=== PATIENT | female | born 1990 | race Caucasian/White ===

== ENCOUNTER 2016-06-10 07:03 | Inpatient (IN) ==
[2016-06-10] MEDS: LACTATED RINGERS 1,000 ML IV SCH ×2 (07:28→08:32)
[2016-06-10] MEDS ORDERED: ceFAZolin 2,000 MG in PREMIX 1 EACH IV ONE (07:29)
[2016-06-10] MEDS ORDERED: FAMOTIDINE 20 MG/2 ML VIAL IV ONE (07:29)
[2016-06-10] MEDS ORDERED: CITRIC ACID/SODIUM CITRATE 30 ML UDCUP PO ONE (07:29)
[2016-06-10 07:55] LABS: Basophils % 0.3 % (0.0-0.8); Eosinophils # 0.1 10*3/uL (0.0-0.87); Eosinophils % 0.5 % (0.00-10.9); Hemoglobin 12.1 GM/DL (12.0-16.0); Immature Granulocytes % 0.6 %; Immature Granulocytes Absolute 0.07 #; Lymphocytes # 2.1 10*3/uL (1.4-4.0); Lymphocytes % 19.1 % (21.3-54.2); Mean Corpuscular HGB Conc 33.6 GM/DL (32-36); Mean Corpuscular Hemoglobin 27 PG (27-34); Mean Corpuscular Volume 78.9 FL (87-102); Mean Platelet Volume 9.9 FL (9.6-12.0); Monocytes # 0.5 10*3/uL (0.11-0.8); Monocytes % 4.5 % (1.7-12.7); Neutrophils # 8.2 10*3/uL (1.4-7.4); Platelet Count 208 T/CUMM (130-400); Red Blood Count 4.56 MC/CUMM (3.8-5.5); Red Cell Distribution Width 14.3 % (9.3-17.3)
[2016-06-10] MEDS ORDERED: OXYTOCIN/LR 20 UNIT/1,000 ML BAG IV ONE ×2 (08:07→11:22)
[2016-06-10 08:40] LABS: Albumin 2.9 G/DL (3.4-5.0); Bilirubin,Total 0.4 MG/DL (0.2-1.0); Calcium 10.3 MG/DL (8.5-10.1); Osmolality,Calculated 279.1 MOS/KG (273-304); Potassium 3.6 MMOL/L (3.5-5.1); Total Protein 6.5 G/DL (6.4-8.3)
[2016-06-10] MEDS ORDERED: ONDANSETRON 4 MG/2 ML VIAL IV PRN (11:22)
[2016-06-10] MEDS ORDERED: ACETAMINOPHEN 325 MG TABLET PO PRN (11:22)
[2016-06-10] MEDS ORDERED: RHO(D) IMMUNE GLOBULIN 300 MCG SYRINGE IM ONE (11:22)
[2016-06-10] MEDS ORDERED: PROMETHAZINE 25 MG/1 ML VIAL IM PRN (11:24)
[2016-06-10] MEDS ORDERED: MEPERIDINE 25 MG/1 ML VIAL IV PRN (11:24)
[2016-06-10] MEDS ORDERED: LACTATED RINGERS 1,000 ML IV SCH (11:30)
[2016-06-10] MEDS ORDERED: ePHEDrine 50 MG/ML AMP ONE (11:34)
[2016-06-10] MEDS ORDERED: MORPHINE 10 MG/10 ML VIAL ONE (11:35)
[2016-06-10] MEDS ORDERED: MIDAZOLAM 2 MG/2 ML VIAL ONE (11:36)
[2016-06-10] MEDS ORDERED: HYDROmorphone 2 MG/1 ML VIAL IV ONE (11:52)
[2016-06-10] MEDS ORDERED: NALOXONE 0.4 MG/ML VIAL IV PRN (11:52)
[2016-06-10] MEDS ORDERED: HYDROmorphone PCA 30 MG/30 ML SYRINGE IV SCH (12:00)
[2016-06-10 12:41] LABS: Apearance,Urine CLEAR (Clear); Bacteria,Urine Occasional /HPF (Few); Bilirubin,Urine Negative (Negative); Blood, Urine Negative (Negative); Glucose,Urine (UA) Negative (Negative); Ketones,Urine Negative (Negative); Mucus,Urine Occasional /LPF (Occasional); Nitrite,Urine Negative (Negative); Protein,Urine Negative; RBC,Urine 1 /HPF (0-4); Squamous Epithelial Cell,Urine Occasional /HPF (0-10); Urine Color Straw (Yellow); Urine Specific Gravity 1.004 (1.001-1.035); Urine Urobilinogen < 2.0 EU/DL (0.2-1.0); WBC,Urine <1 /HPF (0-6)
[2016-06-10] MEDS: DOCUSATE SODIUM 100 MG CAPSULE PO SCH (21:04)
[2016-06-10 22:00] LABS: Basophils % 0.3 % (0.0-0.8); Eosinophils % 0.1 % (0.00-10.9); Hematocrit 29.7 VOL% (35.7-47.0); Hemoglobin 9.8 GM/DL (12.0-16.0); Immature Granulocytes % 0.6 %; Immature Granulocytes Absolute 0.07 #; Lymphocytes # 1.6 10*3/uL (1.4-4.0); Lymphocytes % 12.8 % (21.3-54.2); Mean Corpuscular Hemoglobin 27 PG (27-34); Mean Corpuscular Volume 80.7 FL (87-102); Mean Platelet Volume 9.8 FL (9.6-12.0); Monocytes # 0.5 10*3/uL (0.11-0.8); Neutrophils # 10.4 10*3/uL (1.4-7.4); Neutrophils % 82.2 % (38.7-73.9); Platelet Count 164 T/CUMM (130-400); Red Blood Count 3.68 MC/CUMM (3.8-5.5); Red Cell Distribution Width 14.2 % (9.3-17.3); White Blood Count 12.7 T/CUMM (4-12)
[2016-06-10] MEDS ORDERED: diphenhydrAMINE 50 MG/1 ML VIAL IV PRN (23:40)
[2016-06-11 04:58] LABS: Basophils # 0.1 10*3/uL (0.0-0.2); Basophils % 0.4 % (0.0-0.8); Eosinophils % 0.2 % (0.00-10.9); Hematocrit 29.5 VOL% (35.7-47.0); Hemoglobin 9.6 GM/DL (12.0-16.0); Immature Granulocytes % 0.6 %; Immature Granulocytes Absolute 0.08 #; Lymphocytes # 2.3 10*3/uL (1.4-4.0); Lymphocytes % 18.3 % (21.3-54.2); Mean Corpuscular HGB Conc 32.5 GM/DL (32-36); Mean Corpuscular Hemoglobin 27 PG (27-34); Mean Corpuscular Volume 81.7 FL (87-102); Mean Platelet Volume 9.5 FL (9.6-12.0); Monocytes # 0.6 10*3/uL (0.11-0.8); Monocytes % 4.9 % (1.7-12.7); Neutrophils # 9.6 10*3/uL (1.4-7.4); Neutrophils % 75.6 % (38.7-73.9); Platelet Count 156 T/CUMM (130-400); Red Blood Count 3.61 MC/CUMM (3.8-5.5); Red Cell Distribution Width 14.3 % (9.3-17.3); White Blood Count 12.6 T/CUMM (4-12)
[2016-06-11] MEDS: IBUPROFEN 800 MG TABLET PO PRN ×2 (06:00→17:56)
[2016-06-11] MEDS: MAGNESIUM HYDROXIDE SUSP 30 ML UDCUP PO PRN (10:03)
[2016-06-11] MEDS: SIMETHICONE CHEW 80 MG TABLET PO PRN (10:03)
[2016-06-11] MEDS: oxyCODONE/ACETAMINOPHEN 5-325 MG TABLET PO PRN ×3 (10:03→18:56)
[2016-06-11] MEDS: DOCUSATE SODIUM 100 MG CAPSULE PO SCH ×2 (10:03→20:55)
[2016-06-11] MEDS: MULTIVITAMIN (PRENATAL) TABLET PO SCH (10:03)
--- NOTE | 2016-06-11 11:48 | Pathology Report from [facility] ---
ACCESSION # : [id number] PATIENT NAME : Mercy Worthington ORDERING DR : WYATT DOS SANTOS CLINICAL HX: G1 term @ 39.2 wks gestation, elective due to severe hemorrhoids POST-OP DX: Same SPECIMEN INFO: Placenta GROSS DESCRIPTION: Received fresh labeled "[facility]" is a 522 gm placenta measuring 21.0 x 17.0 x 2.2 cm. The membranes are pink morales and translucent. The umbilical cord measures 29.0 cm, contains three vessels and is centrally inserted. The surface is blue herr with a few areas of subchorionic fibrin noted. The maternal surface displays hemorrhagic intact cotyledons with no gross abnormalities appreciated upon sectioning. Sections submitted A- membranes and cord, B- and maternal surfaces. DIAGNOSIS FOR [facility]: Trivascular umbilical cord. Unremarkable membranes. Third trimester placenta with increase in syncytial clumping and dystrophic calcification. SERVICE DATE: 06/10/2016 REPORT DATE: 06/11/2016 PATHOLOGIST: Yumiko Price III, M.D. MTDD
[2016-06-12] MEDS: SIMETHICONE CHEW 80 MG TABLET PO PRN (00:10)
[2016-06-12] MEDS: MAGNESIUM HYDROXIDE SUSP 30 ML UDCUP PO PRN (00:10)
[2016-06-12] MEDS: oxyCODONE/ACETAMINOPHEN 5-325 MG TABLET PO PRN ×3 (00:10→10:07)
[2016-06-12 07:28] VITALS: BP 126/75
--- NOTE | 2016-06-12 08:16 | History and Physical Update ---
History and Physical Update - History and Physical H&P was reviewed, the patient examined and there: are no changes in the patients condition since last H&P was completed. - Dictation Physical: refer to scanned H&P - Physical Exam Mental Status: alert and oriented Heart: regular rate and rhythm Lung: clear to auscultation Abdomen: within normal limits Vitals: within normal limits (06/10/16: Admitted for primary C/S at 39 wks with severe hemorrhoidal dz with hx of surgery during for hemorrhoids. No complications. )
--- NOTE | 2016-06-12 08:18 | OB/GYN Progress Note ---
Assessment and Plan (1) delivery due to maternal disorder, delivered, curr hospitaliz Status: Acute Assessment and plan: Routine post care Current Visit: Yes BOTTLE [employer]ANER - PN: Subj Interval history: 06/11/16: POD#1 Pt doing very well. Pain adequately controlled. Voiding without difficulty. Exam B[employer]LE [employer]ER - Constitutional Vitals: Vital Signs Temp Pulse Resp BP Pulse Ox 06/12/16 07:27 97.7 F 98 H 18 126/75 96 06/12/16 04:00 98.4 F 96 H 16 131/72 95 06/12/16 00:10 97.9 F 86 18 135/93 98 06/11/16 20:00 98.5 F 80 20 143/71 98 06/11/16 16:00 97.9 F 105 H 20 143/83 98 06/11/16 11:34 98 F 100 H 20 141/85 98 General appearance: normal weight, no acute distress - Head Head exam: Present: normal inspection, normocephalic - Eye Eye exam: Present: EOMI - Respiratory Respiratory exam: Present: clear to auscultation bilaterally - Cardiovascular Cardiovascular exam: Present: regular rate and rhythm - GI/Abdominal GI/Abdominal exam: Present: soft (fundus firm, nontender. Incision intact. No E /I/D) - Extremities Exam Extremities exam: Present: normal inspection - Neurological Exam Neurological exam: Present: alert, oriented X3 - Psychiatric Psychiatric exam: Present: normal affect, normal mood - Skin Skin exam: Present: normal color, warm Results - Labs CBC & BMP: 06/11/16 04:44 06/10/16 07:45 Lab Results: I have reviewed the past 24 hour labs
--- NOTE | 2016-06-12 08:20 | Discharge Summary ---
Hospital Course - Hospital Course Hospital Course: Pt underwent Primary LTCS for severe hemorrhoidal disease S/P hemorrhoid surgery during this . She did well postoperatively without complications. Diagnosis - Discharge Diagnosis (1) delivery due to maternal disorder, delivered, curr hospitaliz Status: Acute Discharge Plan - Discharge Data Disposition: Disch To Home/Self Care Condition at Discharge: Stable Discharge Diet: advance to your usual diet Activity: other (pelvic rest x 6 wks) Hygiene: may shower Weight Bearing at Discharge: full weight bearing Driving: not until seen by doctor Contact your physician if you experience:: fever over 101, Difficulty voiding, Redness or swelling, Nausea/Vomiting, Shortness of breath, Bleeding, pain uncontrolled by pain medications - Discharge Medications New Ibuprofen Tab [Motrin Tab] 800 mg PO Q8H PRN #30 tablet PRN Reason: Pain Severe (8-10) oxyCODONE/ACETAMINOPHEN 5-325 [Percocet 5-325] 2 tablet PO Q4H PRN #30 tablet PRN Reason: Pain Moderate (4-7) No Action Docusate Sodium Cap [Colace Cap] 1 tablet PO BID Pnv No.122/Iron/Folic Acid [ Multi Tablet] 1 tablet PO DAILY - Follow Up or Referral Follow Up: Julia Woods DO [Physician] - 1 Week - Forms/Instructions Exam - Constitutional Vitals: Period Temp Pulse Resp BP Sys/Preston Pulse Ox Last 24 Hr 97.7 F-98.5 F 80-105 16-20 126-143/71-93 95-98 General appearance: normal weight, no acute distress - Head Head exam: Present: normal inspection, normocephalic - Eye Eye exam: Present: EOMI - Respiratory Respiratory exam: Present: clear to auscultation bilaterally - Cardiovascular Cardiovascular exam: Present: regular rate and rhythm - GI/Abdominal GI/Abdominal exam: Present: soft (fundus firm, nontender. Incision intact without E/I/D) - Extremities Exam Extremities exam: Present: normal inspection - Neurological Exam Neurological exam: Present: alert, oriented X3 - Psychiatric Psychiatric exam: Present: normal affect, normal mood - Skin Skin exam: Present: normal color, warm DS: Provider Date of admission: 06/10/16 07:03 Primary care physician: Margarette Wynne NP Attending physician on admission: Julia Woods DO Consults: 06/10/16 07:29 Consult to Anesthesiology [CONS] Routine Consulting Provider: Reason for Anesthesiology: Pre-op Clearance 06/10/16 11:22 Consult to Manager Testing [CONS] Routine Consult Manager Testing: Breast Feeding Discharging clinician: Julia Woods DO Expected date of discharge: 06/12/16
[2016-06-12] MEDS: DOCUSATE SODIUM 100 MG CAPSULE PO SCH (08:42)
[2016-06-12] MEDS: MULTIVITAMIN (PRENATAL) TABLET PO SCH (08:42)
[2016-06-12] MEDS: IBUPROFEN 800 MG TABLET PO PRN (08:42)
== END 2016-06-12 12:11 | disposition home or self-care (01) | DRG 766 ==
LOC: N.LD 07:03 → N.OB 12:50
PROVIDERS: ADMIT Obstetrics & Gynecology; ATTEND Obstetrics & Gynecology
PROC: LDCSECT (ICD-10-PCS; 2016-06-10 09:00)

== ENCOUNTER 2020-12-16 11:33 | Inpatient (IN) ==
[2020-12-16] MEDS ORDERED: ceFAZolin 2,000 MG/50 ML DUPLEX IV ONE (12:06)
[2020-12-16] MEDS ORDERED: FAMOTIDINE 20 MG/2 ML VIAL IV ONE (12:06)
[2020-12-16] MEDS ORDERED: CITRIC ACID/SODIUM CITRATE 30 ML UDCUP PO ONE (12:06)
[2020-12-16] MEDS: LACTATED RINGERS 1,000 ML IV SCH ×2 (12:20→12:56)
[2020-12-16 12:30] LABS: Basophils % 0.1 % (0.0-0.8); Eosinophils # 0.1 10*3/uL (0.0-0.87); Eosinophils % 0.7 % (0.00-10.9); Hematocrit 33.9 VOL% (35.7-47.0); Hemoglobin 10.8 GM/DL (12.0-16.0); Immature Granulocytes % 1.8 %; Immature Granulocytes Absolute 0.12 #; Lymphocytes % 15.2 % (21.3-54.2); Mean Corpuscular HGB Conc 31.9 GM/DL (32-36); Mean Corpuscular Volume 77.2 FL (87-102); Mean Platelet Volume 9.7 FL (9.6-12.0); Monocytes % 2.8 % (1.7-12.7); Neutrophils % 79.4 % (38.7-73.9); Platelet Count 164 T/CUMM (130-400); Red Blood Count 4.39 MC/CUMM (3.8-5.5); Red Cell Distribution Width 15.5 % (9.3-17.3); White Blood Count 6.8 T/CUMM (4-12)
[2020-12-16 12:52] LABS: Albumin 2.3 G/DL (3.4-5.0); Bilirubin,Total 0.5 MG/DL (0.20-1.00); Calcium 9.2 MG/DL (8.5-10.1); Osmolality,Calculated 276.3 MOS/KG (273-304); Potassium 3.2 MMOL/L (3.5-5.1); Total Protein 6.6 G/DL (6.4-8.2)
[2020-12-16] MEDS ORDERED: BUPIVACAINE SPINAL 0.75% 2 ML AMP SPINAL ONE (13:11)
[2020-12-16] MEDS ORDERED: ONDANSETRON 4 MG/2 ML VIAL ONE (13:11)
[2020-12-16] MEDS ORDERED: ACETAMINOPHEN INJ 1,000 MG/100 ML VIAL IV ONE (13:16)
[2020-12-16] MEDS ORDERED: DEXAMETHASONE 4 MG/1 ML VIAL ONE (13:16)
[2020-12-16] MEDS ORDERED: KETOROLAC 30 MG/1 ML VIAL ONE (13:16)
[2020-12-16] MEDS ORDERED: PHENYLEPHRINE 1 MG/10 ML SYRINGE IV ONE ×2 (14:59→15:46)
[2020-12-16] MEDS ORDERED: OXYTOCIN/LR 20 UNIT/1,000 ML BAG IV ONE ×2 (15:07→15:52)
[2020-12-16 15:32] LABS: Cord Arterial Blood HCO3 20.6 MMOL/L
[2020-12-16] MEDS ORDERED: TISSUE ADHESIVE 1 EACH APPLICATOR TOP ONE (15:34)
[2020-12-16 15:36] LABS: Cord Venous Blood HCO3 21.7 MMOL/L; Cord Venous Blood PCO2 45.6 MMHG; Cord Venous Blood PO2 18.8
[2020-12-16 15:41] LABS: Bacteria,Urine Occasional /HPF (Few); Bilirubin,Urine Negative (Negative); Blood, Urine Negative (Negative); Glucose,Urine (UA) Negative (Negative); Ketones,Urine 5 mg/dL (Negative); Mucus,Urine Occasional /LPF (Occasional); Nitrite,Urine Negative (Negative); Protein,Urine Negative; Urine Appearance CLEAR (Clear); Urine Color Yellow (Yellow); Urine Specific Gravity 1.006 (1.001-1.035); Urine Urobilinogen < 2.0 EU/DL (0.2-1.0)
[2020-12-16] MEDS ORDERED: ONDANSETRON 4 MG/2 ML VIAL IV PRN (15:52)
[2020-12-16] MEDS ORDERED: MAGNESIUM HYDROXIDE SUSP 30 ML UDCUP PO PRN (15:52)
[2020-12-16] MEDS ORDERED: RHO(D) IMMUNE GLOBULIN 300 MCG SYRINGE IM ONE (15:52)
[2020-12-16] MEDS ORDERED: ACETAMINOPHEN 325 MG TABLET PO PRN (15:52)
[2020-12-16] MEDS ORDERED: LACTATED RINGERS 1,000 ML IV SCH (16:00)
[2020-12-16] MEDS: DOCUSATE SODIUM 100 MG CAPSULE PO SCH (21:00)
[2020-12-16] MEDS ORDERED: ACETAMINOPHEN 500 MG TABLET PO PRN (21:00)
[2020-12-16] MEDS: KETOROLAC 30 MG/1 ML VIAL IV PRN (21:33)
[2020-12-17] MEDS: KETOROLAC 30 MG/1 ML VIAL IV PRN ×2 (04:53→11:28)
[2020-12-17 06:42] LABS: Basophils % 0.1 % (0.0-0.8); Eosinophils % 0.2 % (0.00-10.9); Hematocrit 30.6 VOL% (35.7-47.0); Hemoglobin 9.6 GM/DL (12.0-16.0); Immature Granulocytes % 0.9 %; Immature Granulocytes Absolute 0.09 #; Lymphocytes # 1.4 10*3/uL (1.4-4.0); Lymphocytes % 14.3 % (21.3-54.2); Mean Corpuscular HGB Conc 31.4 GM/DL (32-36); Mean Corpuscular Volume 77.5 FL (87-102); Mean Platelet Volume 9.3 FL (9.6-12.0); Neutrophils % 82.5 % (38.7-73.9); Platelet Count 148 T/CUMM (130-400); Red Blood Count 3.95 MC/CUMM (3.8-5.5); Red Cell Distribution Width 15.4 % (9.3-17.3); White Blood Count 9.6 T/CUMM (4-12)
[2020-12-17 07:09] LABS: Hypochromasia 1+; Microcytosis 1+
[2020-12-17 07:10] LABS: Platelet Estimate Normal
[2020-12-17] MEDS: MULTIVITAMIN (PRENATAL) TABLET PO SCH (09:25)
[2020-12-17] MEDS: DOCUSATE SODIUM 100 MG CAPSULE PO SCH ×2 (09:25→21:38)
[2020-12-17] MEDS: ENOXAPARIN 40 MG/0.4 ML SYRINGE SUBCUT SCH (11:26)
[2020-12-17] MEDS: IBUPROFEN 800 MG TABLET PO PRN (20:17)
[2020-12-18] MEDS ORDERED: AZITHROMYCIN INJ 1,000 MG in SODIUM CHLORIDE 0.9% 250 ML IV ONE (06:12)
[2020-12-18] MEDS ORDERED: AZITHROMYCIN INJ 500 MG in SODIUM CHLORIDE 0.9% 250 ML IV ONE (06:28)
[2020-12-18] MEDS ORDERED: LACTATED RINGERS 1,000 ML IV SCH (06:30)
[2020-12-18 08:07] LABS: Basophils % 0.2 % (0.0-0.8); Eosinophils # 0.1 10*3/uL (0.0-0.87); Eosinophils % 0.6 % (0.00-10.9); Hematocrit 28.8 VOL% (35.7-47.0); Hemoglobin 9.2 GM/DL (12.0-16.0); Immature Granulocytes % 5.8 %; Immature Granulocytes Absolute 0.56 #; Lymphocytes # 0.8 10*3/uL (1.4-4.0); Lymphocytes % 8.5 % (21.3-54.2); Mean Corpuscular HGB Conc 31.9 GM/DL (32-36); Mean Platelet Volume 9.3 FL (9.6-12.0); Monocytes % 1.7 % (1.7-12.7); Neutrophils % 83.2 % (38.7-73.9); Platelet Count 180 T/CUMM (130-400); Red Blood Count 3.74 MC/CUMM (3.8-5.5); Red Cell Distribution Width 15.6 % (9.3-17.3); White Blood Count 9.7 T/CUMM (4-12)
[2020-12-18 08:26] LABS: Alanine Aminotransferase 18 U/L (13-56); Albumin 1.8 G/DL (3.4-5.0); Alkaline Phosphatase 123 U/L (45-117); Aspartate Amino Transferase 43 U/L (0-37); Band Neutrophils 7 % (0-10); Bilirubin,Total < 0.39 MG/DL (0.20-1.00); Blood Urea Nitrogen 10 MG/DL (7-18); Calcium 7.9 MG/DL (8.5-10.1); Carbon Dioxide 21 MMOL/L (21-32); Estimated Glom Filtration Rate 100 ML/MIN; Glucose 70 MG/DL (74-106); Hypochromasia 1+; Lymphocytes 6 % (20-55); Microcytosis 1+; Nucleated Red Blood Cells 1 (0-5); Osmolality,Calculated 271.7 MOS/KG (273-304); Potassium 3.1 MMOL/L (3.5-5.1); Segmented Neutrophils 84 % (50-85); Sodium 138 MMOL/L (136-145); Total Cells Counted 100; Total Protein 5.2 G/DL (6.4-8.2)
[2020-12-18] MEDS: IBUPROFEN 800 MG TABLET PO PRN ×2 (08:26→20:53)
[2020-12-18] MEDS: DOCUSATE SODIUM 100 MG CAPSULE PO SCH ×2 (08:26→20:41)
[2020-12-18 08:27] LABS: Platelet Estimate Adequate; Polychromasia Slight
[2020-12-18] MEDS: DEXAMETHASONE 4 MG/1 ML VIAL IV SCH (08:27)
[2020-12-18] MEDS ORDERED: DEXAMETHASONE INJ 6 MG in SODIUM CHLORIDE 0.9% 50 ML IV SCH (09:00)
[2020-12-18] MEDS ORDERED: POTASSIUM CHLORIDE 20 MEQ TABLET PO ONE (09:17)
[2020-12-18] MEDS ORDERED: cefTRIAXone 1,000 MG in SODIUM CHLORIDE 0.9% 100 ML IV SCH (11:00)
[2020-12-18 11:07] LABS: Ferritin 68.7 ng/ml (8-252)
[2020-12-18] MEDS: ENOXAPARIN 40 MG/0.4 ML SYRINGE SUBCUT SCH (11:08)
[2020-12-18] MEDS: MULTIVITAMIN (PRENATAL) TABLET PO SCH (12:07)
[2020-12-18] MEDS: ZINC GLUCONATE 50 MG TABLET PO SCH (12:07)
[2020-12-18] MEDS: SIMETHICONE CHEW 80 MG TABLET PO PRN (12:07)
[2020-12-18] MEDS: CHOLECALCIFEROL 1,000 UNIT TABLET PO SCH (12:08)
[2020-12-18] MEDS: ASCORBIC ACID 500 MG TABLET PO SCH ×2 (12:08→20:41)
[2020-12-18] MEDS ORDERED: ALBUTEROL/IPRATROPIUM 3 ML NEB RESP TX SCH (13:00)
[2020-12-19 05:52] LABS: Basophils % 0.1 % (0.0-0.8); Eosinophils % 0.1 % (0.00-10.9); Hematocrit 27.7 VOL% (35.7-47.0); Hemoglobin 8.7 GM/DL (12.0-16.0); Immature Granulocytes % 4.7 %; Immature Granulocytes Absolute 0.53 #; Lymphocytes # 1.4 10*3/uL (1.4-4.0); Lymphocytes % 12.1 % (21.3-54.2); Mean Corpuscular HGB Conc 31.4 GM/DL (32-36); Mean Corpuscular Volume 78.2 FL (87-102); Mean Platelet Volume 9.6 FL (9.6-12.0); Monocytes % 1.9 % (1.7-12.7); Neutrophils % 81.1 % (38.7-73.9); Platelet Count 205 T/CUMM (130-400); Red Blood Count 3.54 MC/CUMM (3.8-5.5); Red Cell Distribution Width 15.6 % (9.3-17.3); White Blood Count 11.3 T/CUMM (4-12)
[2020-12-19 06:15] LABS: Ferritin 105.6 ng/mL (8-252)
[2020-12-19 06:18] LABS: Risk Ratio 6.14; VLDL Cholesterol 48.2 MG/DL
[2020-12-19 06:19] LABS: Alanine Aminotransferase 19 U/L (13-56); Albumin 1.8 G/DL (3.4-5.0); Alkaline Phosphatase 125 U/L (45-117); Aspartate Amino Transferase 61 U/L (0-37); Bilirubin,Total < 0.39 MG/DL (0.20-1.00); Blood Urea Nitrogen 10 MG/DL (7-18); Calcium 8.1 MG/DL (8.5-10.1); Carbon Dioxide 21 MMOL/L (21-32); Estimated Glom Filtration Rate 115 ML/MIN; Glucose 75 MG/DL (74-106); Osmolality,Calculated 278.3 MOS/KG (273-304); Potassium 3.6 MMOL/L (3.5-5.1); Sodium 141 MMOL/L (136-145); Total Protein 5.2 G/DL (6.4-8.2)
[2020-12-19 06:27] LABS: Band Neutrophils 12 % (0-10); Lymphocytes 12 % (20-55); Nucleated Red Blood Cells 1 (0-5); Segmented Neutrophils 75 % (50-85); Total Cells Counted 100
[2020-12-19 06:28] LABS: Hypochromasia 1+; Microcytosis 1+; Ovalocytes Slight
[2020-12-19 06:29] LABS: Platelet Estimate Normal
[2020-12-19] MEDS ORDERED: AZITHROMYCIN 250 MG TABLET PO SCH (09:00)
[2020-12-19] MEDS: DEXAMETHASONE 4 MG/1 ML VIAL IV SCH (10:15)
[2020-12-19] MEDS: ZINC GLUCONATE 50 MG TABLET PO SCH (10:15)
[2020-12-19] MEDS: ASCORBIC ACID 500 MG TABLET PO SCH (10:15)
[2020-12-19] MEDS: CHOLECALCIFEROL 1,000 UNIT TABLET PO SCH (10:16)
[2020-12-19] MEDS: IBUPROFEN 800 MG TABLET PO PRN (10:17)
[2020-12-19] MEDS: MULTIVITAMIN (PRENATAL) TABLET PO SCH (10:17)
[2020-12-19] MEDS: DOCUSATE SODIUM 100 MG CAPSULE PO SCH (10:17)
[2020-12-19] MEDS: SIMETHICONE CHEW 80 MG TABLET PO PRN (10:18)
== END 2020-12-19 15:49 | disposition home or self-care (01) | DRG 786 ==
LOC: N.LD 11:33
PROVIDERS: ADMIT Student in an Organized Health Care Education/Training Program; ATTEND Student in an Organized Health Care Education/Training Program
PROC: LDCSECT (ICD-10-PCS; 2020-12-16 14:00)